=== PATIENT | female | born 1970 ===

== ENCOUNTER 2021-09-27 11:58 | Outpatient (CLI) | payer OTHER, SELFPAY ==
--- NOTE | ~2021-09-27 | XR_ITS ---
XR ankle RT min 3V, XR foot RT min 3V 09/27/2021 12:29 Indication: Right ankle and foot pain Procedure: 4 views right ankle and 3 views right foot Comparison: No prior studies for comparison. Findings: There is a small degenerative calcaneal enthesophyte at the plantar surface. Ankle mortise intact. No other fracture or traumatic malalignment. No significant soft tissue abnormality. Talar do me is normal. No foreign bodies. Lisfranc joint intact. Impression: 1: No significant bone or joint abnormality. Reviewed, dictated and finalized at location A. Impression: 1: No significant bone or joint abnormality. Impression: 1: No significant bone or joint abnormality.
== END 2021-09-27 11:59 | disposition home or self-care (01) ==
LOC: CHSIMG 12:02
PROVIDERS: PCP Physician Assistant; Visit Provider Registered Nurse
DX: M25.571 Pain in right ankle and joints of right foot (principal)
CPT/HCPCS: 73610; 73630

== ENCOUNTER 2021-10-01 08:27 | Outpatient (CLI) | payer OTHER, SELFPAY ==
--- NOTE | ~2021-10-01 | MM_ITS ---
EXAMINATION: MM screening noris BI w yudi HISTORY: Screening mammogram TECHNIQUE: Craniocaudal and mediolateral oblique 3-D tomosynthesis images were obtained and synthetic 2-D images were generated. CAD analysis was submitted and interpreted. COMPARISON: No prior mammogram is available for comparison at this institution. BREAST PARENCHYMAL COMPOSITION: There are scattered areas of fibroglandular density. FINDINGS: There is fibroglandular asymmetry but no evidence of suspicious mass, calcification, or arc hitectural distortion to suggest malignancy in either breast. IMPRESSION: 1. No mammographic evidence of malignancy. 2. Recommend routine screening mammography in one year. BI-RADS Category 2: Benign finding(s). Reviewed, dictated and finalized at location A.
== END 2021-10-01 08:28 | disposition home or self-care (01) ==
LOC: CHSIMG 08:29
PROVIDERS: PCP Physician Assistant; Visit Provider Physician Assistant
DX: Z12.31 Encounter for screening mammogram for malignant neoplasm of breast (principal)
CPT/HCPCS: 77063; 77067